=== PATIENT | female | born 1995 | race Caucasian/White ===

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

== ENCOUNTER → 2017-04-27 | Outpatient (CLI) | payer OTHER ==
--- NOTE | 2017-04-28 07:53 | DIAGNOSTIC IMAGING REPORT ---
R LOWER EXT JOINT WITHOUT CLINICAL HISTORY: 21 years-old Female with ACUTE R KNEE PAIN/HX ACL TEAR. Acute right knee pain, most pronounced medially. Pain is worse with extension. History of prior ACL repair COMPARISON: None available TECHNIQUE: Multiplanar, multisequence MRI of the right knee was performed without intravenous contrast. FINDINGS: MENISCI: There is multidirectional linear increased signal abnormalities involving the posterior junction and posterior horn medial meniscus nicely seen on images 18 and 19 of series 6, and also on images 18 through 21 of series 4 compatible with complex tear extending to both the superior and inferior articular surfaces. Radial tear of the posterior horn is seen on image 18 series 4. There is increased linear signal involving the peripheral fibers medial meniscal body without definite extension to an articular surface suggesting degeneration. Mild adjacent parameniscal edema. There is an ovoid T2 hyperintense collection measuring up to 7 x 9 x 7 mm adjacent to the posterior root of the medial meniscal body, image 15 series 6 and image 17 series 7. No displaced meniscal fragments identified. The lateral meniscus appears sharp in contour and is intact. CRUCIATE LIGAMENTS: Prior ACL repair with graft appearing intact. Ill-defined 8 x 5 mm area of decreased T1 and T2 signal within the lateral aspect of the anterior intercondylar notch as seen on image 10 series 8 suggests developing arthrofibrosis. No significant root impingement identified. Posterior crucial ligament appears intact. COLLATERAL LIGAMENTS: The popliteus tendon, biceps femoris tendon, fibular collateral ligament and iliotibial band are intact. The superficial and deep components of the medial collateral ligament are intact. EXTENSOR MECHANISM: The quadriceps and patellar tendons are intact. The medial and lateral patellar retinacula are intact. KNEE JOINT: There is a small knee joint effusion. No focal chondral loss or significant joint space narrowing. No intra-articular loose body identified. Micrometallic artifact about the knee compatible with prior surgery. BONE MARROW: The bone marrow signal is age appropriate. No fracture, or marrow replacing process. Minimal focus of bone marrow edema/subcortical cystic change noted involving the medial patellar facet adjacent to the medial retinacular insertion site, image 10 series 7 which may be reactive. SOFT TISSUES: Trace Joe's cyst. Fluid noted along the medial head gastrocnemius suggests leaking component of the Joe's cyst. IMPRESSION: 1. Complex tear of the posterior junction and posterior horn medial meniscus with radial tear of the posterior horn. 9 mm T2 hyperintense collection adjacent to the posterior meniscal root of the medial meniscus suggests a parameniscal cyst or small ganglion. 2. Intact ACL graft with mild arthrofibrosis of the anterior intercondylar notch. 3. Small knee joint effusion. 4. Trace Joe's cyst. Fluid tracking along the medial head gastrocnemius suggests leaking component of the Joe's cyst. The above report was generated using voice recognition software. It may contain grammatical, syntax or spelling errors. Electronically signed by: Austen Machado M.D. 04/28/2017 7:51 AM Dictated Date/Time: 04/28/2017 7:36 AM
== END | disposition home or self-care (01) ==
LOC: C.MRI 22:02
PROVIDERS: ATTEND Physician Assistant Medical
DX: M25.561 Pain in right knee (principal); R29.898 Other symptoms and signs involving the musculoskeletal system; Z87.828 Personal history of other (healed) physical injury and trauma; S83.231A Complex tear of medial meniscus, current injury, right knee, initial encounter; X58.XXXA Exposure to other specified factors, initial encounter; M25.461 Effusion, right knee; M71.21 Synovial cyst of popliteal space [Baker], right knee